=== PATIENT | male | born 1970 | race African-American/Black ===

== ENCOUNTER 2017-06-13 16:59 | Observation (INO) ==
[2017-06-13] MEDS ORDERED: TYLENOL PR PRN (18:18)
[2017-06-13 18:26] LABS: ALLEN TEST YES; BE -1.3 mmoll (-3.0-3.0); BLOOD TYPE ARTERIAL; DRAW SITE R RADIAL; METHB 1.1 % (0.0-1.5); O2(CT) 18.6 mL/dL (15.0-23.0); PCO2(98.6) 35 mmHg (35-45); PO2(98.6) 83 mmHg (60-100); SAMPLE BLOOD; SAO2 98.4 % (95.0-100.0); THB 13.8 g/dL (11.5-17.4); pH(98.6) 7.42 (7.35-7.45)
[2017-06-13 18:28] LABS: MODALITY ROOM AIR
[2017-06-13 19:11] LABS: URINE MICRO REVIEW NEEDED? NO; URINE SOURCE CLEAN CATCH
[2017-06-13 19:18] LABS: BILIRUBIN URINE NEGATIVE (NEGATIVE); BLOOD URINE TRACE (NEGATIVE); COLOR YELLOW; GLUCOSE URINE >1000 mg/dL (NEGATIVE); LEUKOCYTES URINE NEGATIVE (NEGATIVE); NITRITE URINE NEGATIVE (NEGATIVE); PH URINE 5.5; PROTEIN URINE 50 mg/dL (NEGATIVE); SP GRAVITY URINE 1.015; TURBIDITY URINE HAZY (CLEAR); UR EPITHELIAL CELLS <10 /HPF (<10); URINE BACTERIA 1+ /HPF; URINE RBC <10 /HPF (<10); URINE WBC <10 /HPF (<10); UROBILINOGEN URINE NORMAL (NORMAL)
[2017-06-13] MEDS: LOVENOX SUBQ SCH (19:50)
[2017-06-13] MEDS: NS 1,000 ML IV SCH (19:50)
[2017-06-13] MEDS: PROTONIX IV SCH (19:50)
[2017-06-13 19:56] LABS: MANUAL DIFF NEEDED? NO
[2017-06-13 20:09] LABS: BASO% 0.1 % (0.0-0.8); EOS# 0.06 X1000 (0.0-0.7); EOS% 0.9 % (0.0-10.0); HEMATOCRIT 37.6 % (42.0-52.0); HEMOGLOBIN 13.4 g/dL (14.0-18.0); LYMPH# 1.97 X1000 (1.2-3.4); LYMPH% 29.2 % (20.5-51.1); MCH 29.4 PG (27-31); MCHC 35.6 g/dL (33-37); MCV 82.5 FL (81-99); MONO# 0.65 X1000 (0.11-0.59); MONO% 9.6 % (1.7-9.3); NEUT% 60.2 % (42.2-75.2); PLT 186 X1000 (130-400); RBC 4.56 XMIL (4.7-6.1)
[2017-06-13 20:30] LABS: AGAP 10; ALBUMIN 3.7 g/dL (3.5-5.0); ALKALINE PHOSPHATASE 67 U/L (32-122); BUN 12 mg/dL (8-22); CALCIUM 8.9 mg/dL (8.8-10.2); CHLORIDE 96 mmol/L (98-107); COSMO 276; GOT 19 U/L (10-34); GPT 18 U/L (10-44); POTASSIUM 4.3 mmol/L (3.5-5.1); SODIUM 131 mmol/L (136-145); TCO2 25 mmol/L (25-35); TOTAL BILIRUBIN 0.65 mg/dL (0.20-1.00); TOTAL PROTEIN 6.4 g/dL (6.3-8.3)
[2017-06-13 20:32] LABS: HEMOGLOBIN A1C 11.4 % (4.8-6.0)
[2017-06-13] MEDS ORDERED: VASOTEC PO SCH (22:00)
[2017-06-13] MEDS: HUMALOG SUBQ SCH (22:39)
[2017-06-14] MEDS: HUMALOG SUBQ SCH ×4 (06:00→20:41)
[2017-06-14] MEDS ORDERED: INSULIN PEN NEEDLES ONE (07:15)
[2017-06-14] MEDS: NS 1,000 ML IV SCH ×2 (08:52→18:42)
[2017-06-14] MEDS: GLUCOPHAGE PO SCH ×2 (08:56→16:37)
[2017-06-14] MEDS: LANTUS SUBQ SCH ×2 (09:06→20:43)
[2017-06-14] MEDS: PRINIVIL PO SCH (09:17)
[2017-06-14] MEDS: LOVENOX SUBQ SCH ×2 (16:38→20:37)
[2017-06-14] MEDS: SODIUM CHLORIDE 0.9% INJ SCH (17:20)
[2017-06-14] MEDS: PROTONIX IV SCH (17:21)
[2017-06-15] MEDS: ZOFRAN IV PRN (05:22)
[2017-06-15] MEDS: HUMALOG SUBQ SCH ×3 (06:32→20:57)
[2017-06-15] MEDS: LANTUS SUBQ SCH ×2 (10:31→20:58)
[2017-06-15] MEDS: GLUCOPHAGE PO SCH ×2 (10:32→18:06)
[2017-06-15] MEDS: PRINIVIL PO SCH (10:32)
[2017-06-15] MEDS: PROTONIX IV SCH (18:06)
[2017-06-15] MEDS: SODIUM CHLORIDE 0.9% INJ SCH (18:06)
[2017-06-15] MEDS: LOVENOX SUBQ SCH (18:06)
[2017-06-16] MEDS ORDERED: TYLENOL PO PRN (03:24)
[2017-06-16 06:06] LABS: MANUAL DIFF NEEDED? NO
[2017-06-16 06:15] LABS: HEMOGLOBIN 12.2 g/dL (14.0-18.0); RBC 4.13 XMIL (4.7-6.1)
[2017-06-16] MEDS: HUMALOG SUBQ SCH ×2 (06:15→12:23)
[2017-06-16 06:16] LABS: BASO% 0.4 % (0.0-0.8); EOS% 2.2 % (0.0-10.0); HEMATOCRIT 33.9 % (42.0-52.0); LYMPH# 2.01 X1000 (1.2-3.4); LYMPH% 44.1 % (20.5-51.1); MCH 29.5 PG (27-31); MCV 82.1 FL (81-99); MONO# 0.46 X1000 (0.11-0.59); MONO% 10.1 % (1.7-9.3); MPV 11.6 FL (7.4-10.4); NEUT% 43.2 % (42.2-75.2); PLT 168 X1000 (130-400)
[2017-06-16 06:41] LABS: AGAP 9; BUN 10 mg/dL (8-22); CALCIUM 8.1 mg/dL (8.8-10.2); CHLORIDE 99 mmol/L (98-107); COSMO 269; POTASSIUM 3.9 mmol/L (3.5-5.1); SODIUM 134 mmol/L (136-145); TCO2 26 mmol/L (25-35)
[2017-06-16 09:32] VITALS: BP 141/90
[2017-06-16] MEDS: GLUCOPHAGE PO SCH (09:34)
[2017-06-16] MEDS: PRINIVIL PO SCH (09:34)
[2017-06-16] MEDS: LANTUS SUBQ SCH (09:35)
[2017-06-16] MEDS: ZOFRAN IV PRN (09:35)
== END 2017-06-16 13:08 | disposition home or self-care (01) ==
LOC: DIRADM 16:59 → INTOOBSV 16:59 → 4N 17:30
PROVIDERS: ADMIT Internal Medicine; ATTEND Internal Medicine